=== PATIENT | male | born 1960 | race Caucasian/White ===

== ENCOUNTER → 2017-10-15 | Outpatient (CLI) | payer BC | LOC: COL.RAD 08:55 | DX: C61 Malignant neoplasm of prostate (principal) | CPT/HCPCS: A9503 ==

== ENCOUNTER 2017-10-28 08:15 | Inpatient (IN) | payer BC ==
[~2017-10-28] VITALS: Ht 172.7 cm; Wt 71.6 kg
[2017-12-02] VITALS (12 sets, daily range): BP systolic 102–138; BP diastolic 54–81; PULSE 70–86; TEMP 97.3–98.4
[2017-12-02] MEDS ORDERED: XALATAN EYE DROPS OD (05:54)
[2017-12-02] MEDS ORDERED: TOPROL XL 25MG25 MG PO (05:54)
[2017-12-02] MEDS ORDERED: TYLENOL 500MG500 MG PO (05:55)
[2017-12-02] MEDS ORDERED: ERY-TAB500 MG PO (05:56)
[2017-12-02] MEDS ORDERED: NORCO 325 MG-51 TAB PO (05:56)
[2017-12-02] MEDS ORDERED: CIPRO 500MG TA500 MG PO (05:57)
[2017-12-02 14:28] LABS: HEMOGLOBIN 12.2 g/dl (13.5-18.0)
[2017-12-02 14:37] LABS: HEMATOCRIT 34.5 % (42.0-52.0)
[2017-12-03] VITALS (7 sets, daily range): BP systolic 106–124; BP diastolic 57–65; PULSE 59–77; TEMP 97.7–98.3
[2017-12-03 07:08] LABS: MEAN CELL VOLUME 93 fl (80.0-100.0); MEAN CORPUSCULAR HGB CONC 36 g/dl (33.0-37.0); MEAN PLATELET VOLUME 11.2 fl (7.4-10.4); PLATELET COUNT 191 K/mm3 (130-400); RED BLOOD COUNT 3.32 M/mm3 (4.20-5.60); REDCELL DISTRIBUTION WIDTH-CV 11.9 % (11.5-14.5)
[2017-12-03 07:10] LABS: HEMATOCRIT 30.7 % (42.0-52.0); HEMOGLOBIN 10.9 g/dl (13.5-18.0); MEAN CORPUSCULAR HEMOGLOBIN 33 pg (27.0-31.0)
[2017-12-03 07:28] LABS: CREATININE, serum 0.94 mg/dL (0.66-1.25); POTASSIUM 4.6 mmol/L (3.4-5.0)
[2017-12-04] VITALS (7 sets, daily range): BP systolic 118–137; BP diastolic 63–78; PULSE 60–84; TEMP 97.8–98.6
[2017-12-05 04:09] VITALS: BP 157/92; PULSE 74; TEMP 98.2
[2017-12-05 10:04] VITALS: BP 130/70; PULSE 75; TEMP 98.1
[2017-12-05 14:55] VITALS: BP 137/80; PULSE 63; TEMP 98.4
== END 2017-12-05 18:10 | disposition home or self-care (01) | DRG 708 ==
LOC: SURG 12-02 05:19 → INPTSU 12-02 05:19 → SURG 12-02 07:30
PROVIDERS: Urology
PROC: 0VT00ZZ Resection of Prostate, Open Approach (ICD-10-PCS; principal; 2017-12-02 07:30)
DX: C61 Malignant neoplasm of prostate (principal); D64.9 Anemia, unspecified
CPT/HCPCS: A9284; J0690; J1100; J2250; J2270; J2405; J2704; J3010; J3480; J7120

== ENCOUNTER 2022-02-17 07:18 | Day surgery (SDC) | payer BC ==
[~2022-02-17] VITALS: Ht 172.7 cm; Wt 73.7 kg
[~2022-02-17 07:18] MED LIST: CIALIS20 MG PO; CIPRO 500MG TA500 MG PO; ERY-TAB500 MG PO; NORCO 325 MG-51 TAB PO; TOPROL XL 25MG25 MG PO; TYLENOL 500MG500 MG PO; XALATAN EYE DROPS OD
[2022-02-17 07:49] VITALS: BP 159/98; PULSE 76; TEMP 98.5
[2022-02-17 09:40] VITALS: BP 124/91; PULSE 66; TEMP 98.2
[2022-02-17 09:55] VITALS: BP 133/86; PULSE 61
[2022-02-17 10:10] VITALS: BP 134/83; PULSE 61
== END 2022-02-17 10:30 | disposition home or self-care (01) ==
LOC: SDCO 07:18
DX: D12.2 Benign neoplasm of ascending colon (principal); D12.5 Benign neoplasm of sigmoid colon; K57.30 Diverticulosis of large intestine without perforation or abscess without bleeding; K64.0 First degree hemorrhoids; Z85.46 Personal history of malignant neoplasm of prostate
CPT/HCPCS: J0330; J2704; J7120

== ENCOUNTER 2023-05-27 15:00 | Outpatient (RCR) | payer BC | END 2023-06-19 | disposition home or self-care (01) | LOC: WSOT | DX: G56.02 Carpal tunnel syndrome, left upper limb (principal) ==